=== PATIENT | male | born 1940 | race Caucasian/White ===

== ENCOUNTER 2016-10-18 10:19 | Day surgery (SDC) | payer MEDICARE ==
[~2016-10-18] VITALS: Ht 182.9 cm; Wt 90.7 kg
[~2016-10-18 10:19] MED LIST: ASPI325T32 PO; BENZ100C8 PO; FEXO1TAB7 PO; FLAX100038 PO; FLUT16SP NS; LEVO750T9 PO; NAPR1TAB25 PO; Sodium Chloride LOK Flush 10 mL Syringe IV PRN; fentaNYL-PF 50 mCg/mL 2 mL Inj IVPUSH PRN
[2016-10-18 10:55] VITALS: BP 158/82; PULSE 74; RESP 16; O2SAT 97
[2016-10-18] MEDS ORDERED: RED30POW MC (10:59)
[2016-10-18] MEDS: 0.9% Sodium Chloride 1,000 ML IV SCH ×4 (11:06→12:31)
[2016-10-18 11:58] VITALS: BP 141/72; PULSE 68; RESP 16; O2SAT 97
[2016-10-18 12:08] VITALS: BP 137/71; PULSE 68; RESP 16; O2SAT 96
[2016-10-18 12:18] VITALS: BP 138/67; PULSE 67; RESP 16; O2SAT 97
[2016-10-18 12:28] VITALS: BP 137/69; PULSE 61; RESP 16; O2SAT 98
--- NOTE | 2016-10-19 00:01 | ENDO ---
[address] [address] ENDOSCOPY PROCEDURE PATIENT: GILLIAN EDWARDS : 1940 MR#: [id number] ADMIT: 10/18/2016 JOB ID: [id number] DATE OF SERVICE: 10/18/2016 PROCEDURE: Esophagogastroduodenoscopy. INDICATION: Gastroesophageal reflux. The patient's ASA classification is 2. Mallampati score is 2. MEDICATIONS: 1. Versed 5 mg. 2. Fentanyl 125 mcg. INSTRUMENT USED: GIF H 190. PROCEDURE DETAILS: After informed consent was obtained, the patient was brought to the GI suite, where he was placed on oxygen via nasal cannula and monitored with continuous pulse oximeter, telemetry, and blood pressure monitoring. A time-out was performed. Then, he was placed in the left lateral decubitus position and medications were administered for sedation. A bite block was placed. The standard EGD scope was inserted through the bite block and advanced under direct visualization to the second portion of the duodenum without difficulty. FINDINGS: 1. Normal-appearing duodenal bulb, first and second portion. 2. Normal-appearing pylorus and antrum. In the gastric body, there were two polyps that were seen that measured approximately 3 and 4 mm. The larger polyp was biopsied. Appearance was consistent with a fundic gland polyp. 3. Retroflexed views in the gastric body revealed a normal-appearing cardia and fundus. 4. The top of the gastric folds coincided with the squamocolumnar junction at 45 cm. 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 Multiple biopsies were obtained. The remainder of the esophagus was otherwise unremarkable. IMPRESSIONS: 1. 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 2. Gastric body polyps. RECOMMENDATIONS: 1. Await biopsy results. 2. Continue PPI. 3. Proceed to colonoscopy. SECOND PROCEDURE PERFORMED: Colonoscopy. INDICATIONS: Colon cancer screening. Please see above for ASA classification, Mallampati score, and medications. INSTRUMENT: PCF H 180 AL. PREP QUALITY: Fair. PROCEDURAL DETAILS: After completion of the EGD exam, a digital rectal exam was performed which was unremarkable. The colonoscope was then inserted into the rectum and advanced under direct visualization to the cecum, which was identified by the presence of the ileocecal valve and appendiceal orifice. Once the cecum was reached, the colonoscope was withdrawn back into the rectum as the mucosa and lumen were examined. In the rectum, retroflexion was performed. Following retroflexion, remaining air in the rectum was suctioned and the procedure was completed. FINDINGS OF PROCEDURE: In the transverse colon, there was an approximately 4 mm polyp that I attempted to remove with a cold snare. However, secondary to the position of the polyp I was unsuccessful in snaring the polyp. At this point, using cold biopsy forceps, the polyp was removed piecemeal. The remainder of the colon exam was otherwise unremarkable. IMPRESSION: Transverse colon polyp. RECOMMENDATION: 1. Fiber rich diet. 2. Trial of MiraLAX daily. 3. Follow up in GI clinic. COMPLICATIONS OF PROCEDURE: None. BLOOD LOSS ESTIMATION: Less than 5 mL.
--- NOTE | 2016-10-19 13:54 | PATH ---
SURGICAL PATHOLOGY Attending Physician:Camila Denson CASE STATUS: Signed Out PATIENT NAME: GILLIAN EDWARDS PID: [id number] : 1940 DATE COLLECTED:10/18/2016 22:16 SPECIMEN: 1: Stomach, Polyp, Biopsy 2: Gastric, Biopsy 3: Esophagus, Biopsy 4: Colon, Polyp CLINICAL HISTORY: 1). GASTRIC BODY POLYP 2). GASTRIC BIOPSY, RULE OUT H.PYLORI 3). GE JUNCTION BIOPSY 4). TRANSVERSE COLON POLYP FINAL DIAGNOSIS: 1.GASTRIC BODY POLYP: FUNDIC GLAND POLYP, NEGATIVE FOR ATYPIA. Negative for evidence of Helicobacter on H&E stain. Negative for intestinal metaplasia. 2.GASTRIC BODY BIOPSY: FRAGMENTS OF GASTRIC FUNDIC MUCOSA WITHOUT SIGNIFICANT INFLAMMATION. Negative for evidence of Helicobacter on H&E stain. Negative for intestinal metaplasia. Negative for dysplasia and malignancy. 3.GE JUNCTION BIOPSY: SQUAMOUS MUCOSA AND GASTRIC CARDIA-TYPE MUCOSA NEGATIVE FOR SPECIALIZED METAPLASIA OF RODRIGUEZ' S-TYPE ESOPHAGUS. Negative for dysplasia and malignancy. Negative for squamous intraepithelial eosinophils. 4.TRANSVERSE COLON POLYP: SESSILE SERRATED ADENOMA INVOLVING SINGLE BIOPSY FRAGMENT. ICD10 K31.7 GROSS DESCRIPTION: Received are four formalin-filled containers, each labeled with the patient' s name. 1. Received in formalin, labeled with the patient' s name and "gastric body polyp", are two fragments of preston, soft tissue ranging in size from 0.1 x 0.1 x 0.1 cm to 0.2 x 0.1 x 0.1 cm. All fragments are totally submitted in cassette 1A. 2. Received in formalin, labeled with the patient' s name and "gastric BXs", are four fragments of preston, soft tissue ranging in size from 0.1 x 0.1 x 0.1 cm to 0.2 x 0.1 x 0.1 cm. All fragments are totally submitted in cassette 2A. 3. Received in formalin, labeled with the patient' s name and "GEJ BXs", are two fragments of preston, soft tissue ranging in size from 0.1 x 0.1 x 0.1 cm to 0.2 x 0.2 x 0.1 cm. All fragments are totally submitted in cassette 3A. 4. Received in formalin, labeled with the patient' s name and "transverse polyp", are two fragments of preston, soft tissue ranging in size from 0.1 x 0.1 x 0.1 cm to 0.2 x 0.2 x 0.1 cm. All fragments are totally submitted in cassette 4A. ([id number]) MICRO DESCRIPTION: See diagnosis. ICD-9 CODES: CPT CODES: 1: 99656 2: 99730 3: 63698 4: 91646 Electronically Signed Out Griffin Maya MD [facility] [address], [place] [address] Technical component performed at [facility], [address], [place], [address]
== END 2016-10-18 23:59 | disposition home or self-care (01) ==
LOC: END 10:19
PROVIDERS: ATTEND Internal Medicine Gastroenterology
DX: Z12.11 Encounter for screening for malignant neoplasm of colon (principal); D12.3 Benign neoplasm of transverse colon; K31.7 Polyp of stomach and duodenum; K21.9 Gastro-esophageal reflux disease without esophagitis; K59.00 Constipation, unspecified; J30.9 Allergic rhinitis, unspecified; Z79.82 Long term (current) use of aspirin
CPT/HCPCS: 43239; 45380; 45385; 88305; 99153; G0500; J7030